=== PATIENT | male | born 1930 | race Caucasian/White ===

== ENCOUNTER 2017-02-01 10:40 | Outpatient (CLI) | payer MEDICARE, OTHER | END 2017-02-01 10:41 | disposition home or self-care (01) | LOC: SC 10:40 | PROVIDERS: ATTEND Specialist | DX: G47.33 Obstructive sleep apnea (adult) (pediatric) (principal) | CPT/HCPCS: 99204; G0463; 99212 ==

== ENCOUNTER 2017-03-02 22:18 | Outpatient (CLI) | payer MEDICARE, OTHER | END 2017-03-02 22:19 | disposition home or self-care (01) | LOC: SC 22:18 | PROVIDERS: ATTEND Specialist | DX: G47.33 Obstructive sleep apnea (adult) (pediatric) (principal); G47.61 Periodic limb movement disorder | CPT/HCPCS: 95810 ==

== ENCOUNTER 2017-03-29 11:33 | Outpatient (CLI) | payer MEDICARE, OTHER | END 2017-03-29 11:34 | disposition home or self-care (01) | LOC: SC 11:33 | PROVIDERS: ATTEND Specialist | DX: G47.33 Obstructive sleep apnea (adult) (pediatric) (principal); J44.9 Chronic obstructive pulmonary disease, unspecified | CPT/HCPCS: 99213; G0463; 99212 ==

== ENCOUNTER 2017-06-13 20:28 | Outpatient (CLI) | payer MEDICARE, OTHER | END 2017-06-13 20:29 | disposition home or self-care (01) | LOC: SC 20:28 | PROVIDERS: ATTEND Specialist | DX: G47.33 Obstructive sleep apnea (adult) (pediatric) (principal); G47.61 Periodic limb movement disorder | CPT/HCPCS: 95811 ==

== ENCOUNTER 2017-07-21 15:13 | Outpatient (CLI) | payer MEDICARE, OTHER ==
[2017-07-21 15:40] LABS: CALCIUM 9.5 mg/dL (8.5-10.3); CREATININE 0.7 mg/dL (0.6-1.2); POTASSIUM 3.6 mmol/L (3.5-5.0)
[2017-07-21] MEDS ORDERED: IOPAMIDOL-300 100 ML VIAL ONE (16:32)
[2017-07-21] MEDS ORDERED: IOPAMIDOL-300 100 ML VIAL IVP ONE (18:01)
--- NOTE | 2017-07-21 18:37 | CT Preliminary Report ---
Exam: CT NECK SOFT TISSUE W/ IMPRESSION: 1. Indentation of the posterior hypopharynx by prominent anterior osteophytic spurring from the C4-C5 disk space. 2. No evidence for acute inflammatory process, enhancing tumor-like mass or adenopathy in the neck. 3. Otherwise unremarkable appearance of the pharynx and larynx. 4. There are findings of chronic sinusitis and prior sinus surgeries. 5. 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 Potentially significant proximal left cervical ICA stenosis. SITE ID: [id number]
--- NOTE | 2017-07-21 19:02 | CT Report ---
EXAM: CT SOFT TISSUE NECK WITH CONTRAST. EXAM DATE: 07/21/2017 06:01 PM. HISTORY: The patient reports a feeling of a mass at the base of the throat for one month. COMPARISONS: None. TECHNIQUE: Routine soft tissue neck CT protocol. Reconstructions: Coronal and sagittal. IV contrast: 100 mL Isovue-300. In accordance with CT protocol optimization, one or more of the following dose reduction techniques w ere utilized for this exam: automated exposure control, adjustment of mA and/or KV based on patient s ize, or use of iterative reconstructive technique. FINDINGS: Prominent chronic multilevel degenerative cervical spinal spondylosis. The posterior aspect of the hy popharynx is indented by anteriorly directed prominent marginal osteophytic spurring at the C4-C5 lev el protrudes anteriorly nearly 1 cm. This is chronic. Mild to moderate multilobulated paranasal sinus mucosal thickening. There are findings of previous bi lateral sinus surgeries. Clear mastoids. Grossly clear lung apices. Mild nodular nonspecific thyroid gland heterogeneity without dominant mass. Unremarkable parotid and submandibular salivary glands. No evidence for enhancing or space-occupying mass or acute inflammatory process of the pharynx or lar ynx. Unremarkable epiglottis. Symmetric vocal cords. No subglottic airway narrowing. No other evidence for focal space-occupying mass in the neck. No pathologically enlarged cervical lym ph nodes. No focal prevertebral/retropharyngeal thickening or fluid collection. Atherosclerotic disease in both cervical carotid bifurcations left greater than right. Flow-limiting stenosis of the proximal left cervical ICA cannot be ruled out. IMPRESSION: 1. Indentation of the posterior hypopharynx by prominent anterior osteophytic spurring from the C4-C5 disk space. 2. No evidence for acute inflammatory process, enhancing tumor-like mass or adenopathy in the neck. 3. Otherwise, unremarkable appearance of the pharynx and larynx. 4. There are findings of chronic sinusitis and prior sinus surgeries. 5. 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 Potentially significant proximal left cervical ICA stenosis. [facility] The call report notification system was initiated by Dr. Johny Ramírez at 18:31 hrs on 07/21/17. The above findings were discussed with Dr. Elizalde by Dr. Johny Ramírez at 18:35 hrs on 07/21/17. Referring Provider Line: [phone] SITE ID: [id number]
== END 2017-07-21 15:14 | disposition home or self-care (01) ==
LOC: LAB 15:13 → DI 15:14
PROVIDERS: ATTEND Specialist
DX: R22.1 Localized swelling, mass and lump, neck (principal); M46.02 Spinal enthesopathy, cervical region; J32.9 Chronic sinusitis, unspecified; I70.91 Generalized atherosclerosis
CPT/HCPCS: 36415; 70491; 80048; Q9967

== ENCOUNTER 2017-09-07 14:25 | Outpatient (CLI) | payer MEDICARE, OTHER | END 2017-09-07 14:26 | disposition home or self-care (01) | LOC: SC 14:25 | PROVIDERS: ATTEND Nurse Practitioner Family | DX: G47.33 Obstructive sleep apnea (adult) (pediatric) (principal); G47.61 Periodic limb movement disorder | CPT/HCPCS: 99214; G0463; 99212 ==